=== PATIENT | female | born 1985 | race Caucasian/White ===

== ENCOUNTER 2022-01-03 18:27 | Observation (INO) | payer BC, SELFPAY ==
[2022-01-03 19:01] VITALS: BP 113/65; PULSE 77; TEMP 36.3
--- NOTE | 2022-01-03 19:31 | PC.NURSE ---
Mario Kang RN reported to this nurse, pt has just arrived via ambulance from [facility]. She is currently there for drug rehab and anxiety and depression. Pt's mother has custody of her other kids. Pt is unsure on due date, she has not had care. Fundal height per Mario aKng RN 14cm. FHTs doppled 150s right above the pubic bone. pt states she isn't really in pain but it is a tightening that goes down the side of her abdomen, pointing at a spot about 3-4in above the umbilicus.
--- NOTE | 2022-01-03 19:40 | PC.NURSE ---
As pt was being discharged she decided she would like to go to the ED to be evaluated. Discharge papers given.
--- NOTE | 2022-01-28 13:34 | PM.OBTRLD ---
OB - Triage/Final Diagnosis Visit Information Comments/Additional reasons for admission: I have assessed the risk for this patient, Sonya Flores, and determined that she would benefit from observation care. Final Diagnosis (1) Abdominal pain affecting : Code(s): O26.899 - Other specified related conditions, unspecified trimester; R10.9 - Unspecified abdominal pain Status: Acute
== END 2022-01-03 19:35 | disposition other institution (70) ==
PROVIDERS: Admitting Provider Student in an Organized Health Care Education/Training Program; Visit Provider Student in an Organized Health Care Education/Training Program
DX: O26.899 Other specified pregnancy related conditions, unspecified trimester (principal); R10.9 Unspecified abdominal pain; Z3A.00 Weeks of gestation of pregnancy not specified
CPT/HCPCS: G0378; G0379

== ENCOUNTER 2022-01-03 19:40 | Emergency (ER) | payer BC, SELFPAY ==
--- NOTE | ~2022-01-03 | US_ITS ---
EXAMINATION: US OB <=14 wk fetus w TV DATE: 01/04/2022 01:10 INDICATION: Abdominal pain during of unknown trimester TECHNIQUE: Real-time pelvic transabdominal and transvaginal ultrasound was performed. COMPARISON: None. FINDINGS: There is a single living fetus in variable position. The placenta is posterior. heart motion is identified measuring 153 beats per minute (bpm) by M-mode Doppler. The ovaries are not visualized however no adnexal abnormality is seen. There is no free fluid in the pelvis. The following biometric data were obtained: Biparietal diameter (BPD): 3.1 cm; head circumference (HC): 11.1 cm; abdominal circumference (AC): 9. 0 cm; femur length (FL): 1.5 cm. These measurements are concordant. Estimated weight is 107 g +/- 16 g. As single measurements, these parameters are each equal to the following estimated gestational ages w ith ranges of +/- 2 standard deviations: BPD: 15 weeks 6 days +/- 1 weeks 1 days. HC: 15 weeks 3 days +/- 1 weeks 1 days. AC: 15 weeks 1 days +/- 1 weeks 5 days. FL: 14 weeks 2 days +/- 1 weeks 3 days. estimated gestational age based solely on measurements from this exam is 15 weeks 1 days +/- 1 weeks 0 days. IMPRESSION: 1. Live intrauterine with an estimated gestational age of 15 weeks and 1 day(s) (+/-) 7 day (s) and an estimated delivery date of 06/27/2022. Reviewed, dictated and finalized at location B. IMPRESSION: 1. Live intrauterine with an estimated gestational age of 15 weeks an d 1 day(s) (+/-) 7 day(s) and an estimated delivery date of 06/27/2022.
[2022-01-03 19:52] VITALS: BP 114/57; PULSE 79; RESP 18; TEMP 36.7; O2SAT 100
[2022-01-03 20:15] LABS: Basophils Percent Auto 0.1 % (0.2-1.2); Eosinophils Absolute Auto 0.1 K/mm3 (0-0.3); Eosinophils Percent Auto 1.2 % (0-4.4); Hematocrit 31.4 % (37.0-47.0); Hemoglobin 9.7 g/dL (12.0-15.0); Immature Granulocyte Absolute 0.11 K/mm3 (0.00-0.031); Immature Granulocyte Percent A 1.6 % (0-0.5); Lymphocytes Absolute Auto 1.32 K/mm3 (0.9-3.2); Lymphocytes Percent Auto 19.7 % (18.3-44.2); Mean Corpuscular HGB Conc 30.9 g/dl (32-36); Mean Corpuscular Hemoglobin 24.5 pg (26-34); Mean Corpuscular Volume 79.3 fl (80-100); Mean Platelet Volume 10.4 fl (7.4-10.4); Monocytes Absolute Auto 0.4 K/mm3 (0.1-0.6); Monocytes Percent Auto 6.3 % (2.6-8.5); Neutrophils Absolute Auto 4.8 K/mm3 (1.3-6.7); Neutrophils Percent Auto 71.1 % (45.5-73.1); Platelet Count Result 186 k/mm3 (150-375); Red Blood Count 3.96 M/mm3 (4.2-5.4); Red Cell Distribution Width 16.8 % (11.5-14.5); White Blood Count 6.7 K/mm3 (4.5-10.0)
[2022-01-03 20:28] LABS: Alanine Aminotransferase 66 U/L (6-35); Albumin Level 3.8 g/dL (3.5-5.1); Alkaline Phosphatase 83 U/L (38-126); Anion Gap 8 mmol/L (8-16); Aspartate Amino Transferase 59 U/L (14-36); Bilirubin,Total 0.1 mg/dL (0.2-1.3); Blood Urea Nitrogen 6 mg/dL (7-17); Calcium 9.3 mg/dL (8.4-10.2); Carbon Dioxide 26 mmol/L (22-30); Chloride 103 mmol/L (98-107); Estimated CRCL calculation 131 ml/min; Estimated Glomerular Filt Rate > 60; Glucose 115 mg/dL (65-110); Lipase 145 U/L (23-300); Sodium 137 mmol/L (137-145)
[2022-01-03 21:57] LABS: Appearance Urine Cloudy (Clear); Bilirubin Urine Negative (Negative); Blood Urine Negative (Negative); Color Urine Yellow (Yellow); Glucose Urine UA Negative (Negative); Ketones Urine Negative (Negative); Leukocyte Esterase Ur 2+ LEU/UL (Negative); Nitrate Urine Positive (Negative); Protein Urine Negative (Negative); Specific Grav Ur 1.015 (1.001-1.035); Urobilinogen Urine 0.2 mg/dL (<2.0); pH Urine 7.5 (5.0-9.0)
[2022-01-03 22:04] LABS: Add Urine Microscopic? YES; Bacteria Urine Trace /hpf; Mucus Urine Rare /lpf; Squamous Epithelial Cell Urine Few /hpf (Few); WBC Urine 16-20 /hpf
--- NOTE | 2022-01-03 23:38 | ED.ABDPAIN ---
HPI - Abdominal Pain General Chief Complaint: Abdominal Pain Stated Complaint: Preg, unknown due date, upper ABD pain Time Seen by Provider: 01/03/22 23:36 Source: patient Mode of arrival: ambulatory Limitations: no limitations History of Present Illness HPI narrative: Patient is a 36 y/o female who presents to the ED via EMS from [facility] with c/o intermittent abdominal pain. Patient reports pain began this morning and is in her mid and upper abdomen. She is currently but is unsure if how far along she is. She last had a miscarriage in July of this year and has not had a normal cycle since then. She has not had any care for this . This makes her G7, P5. Patient also reported having nausea and pain in her lower back today, but she denies any vomiting, fever, dysuria, hematuria diarrhea, constipation, rectal bleeding, vaginal bleeding, vaginal discharge. Related Data Home Medications Medication Instructions Recorded Confirmed fluoxetine 10 mg tablet mg 01/03/22 ondansetron 4 mg disintegrating mg 01/03/22 tablet vits no.130-ferrous fum tablet 01/03/22 27 mg iron-folic acid 800 mcg tablet ( Vitamin) quetiapine 50 mg tablet mg 01/03/22 Allergies Allergy/AdvReac Type Severity Reaction Status Date / Time No Known Allergies Allergy Mild Unverified 09/04/08 16:22 Review of Systems Review of Systems: CONSTITUTIONAL: Denies fever, chills, or sweats. CARDIOVASCULAR: Denies chest pain. RESPIRATORY: Denies dyspnea. GASTROINTESTINAL: Reports mid and upper abdominal pain, nausea. Denies constipation, vomiting, or diarrhea. GENITOURINARY: Denies vaginal bleeding, vaginal discharge, dysuria or hematuria. MUSCULOSKELETAL: Reports low back pain. All systems reviewed & are unremarkable except as noted in HPI and below PMFSH Past Medical History Medical History (Updated 01/04/22 @ 01:57 by Karla Sears PA-C) History of miscarriage Surgical History Surgical History (Updated 01/04/22 @ 01:51 by Karla Sears PA-C) No pertinent past surgical history Social History Social History (Updated 01/04/22 @ 01:51 by Karla Sears PA-C) Smoking status: Former smoker Exam Narrative: GENERAL: Well appearing, well-nourished, non-toxic, in no acute distress. HEAD: Normocephalic, atraumatic. NECK: Supple. No adenopathy, no masses. RESPIRATORY: Airway patent, respirations nonlabored. Clear to auscultation bilaterally, no rales, rhonchi, wheezing. CARDIOVASCULAR: Regular rate and rhythm without murmurs, rubs, or gallops. Peripheral pulses 2+ and equal bilaterally. ABDOMINAL: Soft, uterus gravid below umbilicus, mild tenderness to either side of umbilicus, worse on right. Nondistended, no hepatosplenomegaly. Normoactive BS. MUSCULOSKELETAL: Moves all extremities. Strength/ROM intact without gross deformities. No edema. SKIN: Warm, dry, normal color. No rashes. NEURO: A&O X3. Speech clear. Cranial nerves II-XII grossly intact. Steady gait. No ataxic movements. PSYCHIATRIC: Appropriate mood and affect. Normal interaction. Course Vital Signs Vital signs: Vital Signs Temperature 98.1 F 01/03/22 19:52 Pulse Rate 79 01/03/22 19:52 Respiratory Rate 18 01/03/22 19:52 Blood Pressure 114/57 L 01/03/22 19:52 Pulse Oximetry 100 01/03/22 19:52 Oxygen Delivery Room Air 01/03/22 19:52 Temperature 98.1 F 01/03/22 19:52 Pulse Rate 79 01/03/22 19:52 Respiratory Rate 18 01/03/22 19:52 Blood Pressure 114/57 L 01/03/22 19:52 Pulse Oximetry 100 01/03/22 19:52 Oxygen Delivery Room Air 01/03/22 19:52 MDM - Abdominal Pain MDM Narrative Medical decision making narrative: Patient presented to ED with abdominal pain, but unsure of gestational age. No care thus far. No vaginal bleeding reported. Vital signs stable upon arrival. No leukocytosis. Mild anemia noted, microcytic, no previ
[2022-01-04] MEDS: SODIUM CHLORIDE 0.9% IV 1,000 ML 999 ML IV CONT (01:43)
[2022-01-04] MEDS: NITROFURANTOIN MONOHYD MACROCR 100 MG CAP PO (01:46)
[2022-01-04 03:18] VITALS: PULSE 78; RESP 18; O2SAT 98
== END 2022-01-04 03:15 | disposition home or self-care (01) ==
PROVIDERS: Emergency Provider Emergency Medicine
DX: O23.42 Unspecified infection of urinary tract in pregnancy, second trimester (principal); N39.0 Urinary tract infection, site not specified; Z3A.15 15 weeks gestation of pregnancy
CPT/HCPCS: 36415; 76801; 76817; 80053; 81001; 83690; 84702; 85025; 87077; 87086; 87186; 96365; 99284; A9270; G0378; G0379; J0131; J7030